=== PATIENT | male | born 1945 | race Caucasian/White ===

== ENCOUNTER 2020-11-24 15:26 | Inpatient (IN) | payer MEDICARE, OTHER ==
[~2020-11-24] VITALS: Ht 175.3 cm; Wt 97.1 kg
[2020-11-24 17:56] LABS: HEMOGLOBIN 15.4 gm/dl (14.0-17.5); RED BLOOD COUNT 5.23 M/UL (4.20-5.50); WHITE BLOOD COUNT 5.6 K/UL (4.5-11.0)
[2020-11-24 18:19] LABS: BUN/CREATININE RATIO 20 (0-10)
[2020-11-24] MEDS ORDERED: CLOPIDOGREL75 MG PO (22:17)
[2020-11-24] MEDS ORDERED: PRAVASTATIN SOD40 MG PO (22:17)
[2020-11-24] MEDS ORDERED: AMLODIPINE-BEN1 EAC1 PO (22:17)
[2020-11-24] MEDS ORDERED: METOPROLOL SUC100 MG PO (22:17)
[2020-11-24] MEDS ORDERED: HYDROCHLOROTHIA25 MG PO (22:18)
[2020-11-25 05:57] LABS: HEMOGLOBIN 13.4 gm/dl (14.0-17.5); RED BLOOD COUNT 4.56 M/UL (4.20-5.50); WHITE BLOOD COUNT 3.8 K/UL (4.5-11.0)
[2020-11-25 12:17] LABS: BUN/CREATININE RATIO 21 (0-10)
[2020-11-26 06:47] LABS: HEMOGLOBIN 13.4 gm/dl (14.0-17.5); RED BLOOD COUNT 4.6 M/UL (4.20-5.50)
[2020-11-26 06:48] LABS: WHITE BLOOD COUNT 7.8 K/UL (4.5-11.0)
[2020-11-26 07:17] LABS: BUN/CREATININE RATIO 32 (0-10)
[2020-11-27 05:32] LABS: HEMOGLOBIN 14.1 gm/dl (14.0-17.5); RED BLOOD COUNT 4.76 M/UL (4.20-5.50)
[2020-11-27 05:42] LABS: WHITE BLOOD COUNT 11.4 K/UL (4.5-11.0)
--- NOTE | 2020-11-27 05:47 | NUR ---
0540- PT CALLED OUT VIA CALL LIGHT AND STATED THAT HE WAS SOA, FISCAL SERVICES MANAGER SHOWED THAT PATIENT WAS 90% VIA RA, CALLED RT IMMEDIATELY TO OBTAIN BREATHING TREATMENT IF TIME ALLOWED PER MD ORDERS. ENTERED PATIENTS ROOM, PATIENT WAS CALMLY SITTING ON COUCH TALKING ON CELL PHONE. I ASSESSED PATIENT, HE APPEARED TO BE IN NO DISTRESS UPON ASSESSMENT, PLACED ON 2L NC PER MD ORDER. PATIENT HAS NO CHANGES ON FISCAL SERVICES MANAGER AT PRESENT, O2 AT 95% VIA 2L NC.
[2020-11-27 05:56] LABS: BUN/CREATININE RATIO 34 (0-10)
[2020-11-29 02:58] LABS: HEMOGLOBIN 13.4 gm/dl (14.0-17.5); RED BLOOD COUNT 4.76 M/UL (4.20-5.50); WHITE BLOOD COUNT 8.9 K/UL (4.5-11.0)
[2020-11-29 03:39] LABS: BUN/CREATININE RATIO 24 (0-10)
[2020-11-30 05:42] LABS: BUN/CREATININE RATIO 24 (0-10)
[2020-11-30] MEDS ORDERED: CEFUROXIME500 MG PO (12:19)
[2020-11-30] MEDS ORDERED: DECADRON6 MG PO (12:19)
[2020-11-30] MEDS ORDERED: PROAIR HFA8.5 GM INH (12:19)
--- NOTE | 2020-11-30 12:56 | NUR ---
PATIENT O2 SAT 87% ON ROOM AIR.
== END 2020-11-30 16:32 | disposition home or self-care (01) | DRG 177 ==
LOC: ER1 15:26 → M/S 18:38 → CDU 18:38 → M/S 20:29
PROVIDERS: Internal Medicine; Preventive Medicine Occupational Medicine; ADMIT Internal Medicine
PROC: B24BZZZ Ultrasonography of Heart with Aorta (ICD-10-PCS; principal; 2020-11-24)
PROC: XW033E5 Introduction of Remdesivir Anti-infective into Peripheral Vein, Percutaneous Approach, New Technology Group 5 (ICD-10-PCS; 2020-11-24)
PROC: 8E0ZXY6 Isolation (ICD-10-PCS; 2020-11-24)
DX: U07.1 COVID-19 (principal); J12.82 Pneumonia due to coronavirus disease 2019; J96.01 Acute respiratory failure with hypoxia; E87.1 Hypo-osmolality and hyponatremia; I25.10 Atherosclerotic heart disease of native coronary artery without angina pectoris; I35.0 Nonrheumatic aortic (valve) stenosis; D72.819 Decreased white blood cell count, unspecified; R19.7 Diarrhea, unspecified; D69.6 Thrombocytopenia, unspecified; E86.1 Hypovolemia; E66.9 Obesity, unspecified; Z68.31 Body mass index [BMI] 31.0-31.9, adult; Z95.1 Presence of aortocoronary bypass graft; Z79.02 Long term (current) use of antithrombotics/antiplatelets; Z79.899 Other long term (current) drug therapy
CPT/HCPCS: ECHO; 0240U; 36415; 36600; 71045; 71046; 80048; 80053; 80202; 82550; 82553; 82803; 83690; 83735; 83874; 83880; 84484; 85025; 85027; 85379; 85652; 86140; 87040; 87449; 93005; 93306; 94640; 94760; 96374; 96375; 99285; J0456; J0692; J0696; J1100; J1650; J2405; J3370; J7030; J7040; J7070